=== PATIENT | female | born 1950 | race Caucasian/White ===

== ENCOUNTER 2021-01-24 15:32 | Inpatient (IN) | payer MEDICARE ==
[~2021-01-24] VITALS: Ht 160 cm; Wt 86.2 kg
[~2021-01-24 15:32] MED LIST: COZAAR100 MG PO; ELIQUIS 5 MG TAB5 MG PO; ELIQUIS2.5 MG PO; HYDROCHLOROTHIA25 MG PO; LASIX40 MG PO; LOPRESSOR 25 MG25 MG PO; LOPRESSOR50 MG PO; LOSARTAN-HCTZ1 EAC1 PO; OMEPRAZOLE20 MG PO; SYNTHROID150 MCG PO
[2021-01-25 07:18] LABS: HEMOGLOBIN 11.7 gm/dl (12.3-15.3); RED BLOOD COUNT 3.63 M/UL (4.00-5.10); WHITE BLOOD COUNT 5.8 K/UL (4.5-11.0)
[2021-01-27 11:38] LABS: BUN/CREATININE RATIO 30 (0-10)
[2021-01-29] MEDS ORDERED: SYNTHROID150 MCG PO (09:44)
[2021-01-29] MEDS ORDERED: FLU VACCINE IM (09:44)
[2021-01-29] MEDS ORDERED: ACETAMINOPHEN325 MG PO (09:44)
--- NOTE | 2021-01-29 12:10 | NUR ---
awaiting for admitting nurse at [facility] to call back for report. nurse on lunch.
== END 2021-01-29 13:00 | DRG 563 ==
LOC: ER1 15:32 → M/S 19:06 → CDU 19:06 → M/S 21:01
PROVIDERS: Internal Medicine Infectious Disease; ADMIT Family Medicine
PROC: 0RSJXZZ Reposition Right Shoulder Joint, External Approach (ICD-10-PCS; principal; 2021-01-25)
DX: S43.005A Unspecified dislocation of left shoulder joint, initial encounter (principal); S02.40DA Maxillary fracture, left side, initial encounter for closed fracture; I48.21 Permanent atrial fibrillation; I50.32 Chronic diastolic (congestive) heart failure; Z20.822 Contact with and (suspected) exposure to COVID-19; S43.004A Unspecified dislocation of right shoulder joint, initial encounter; W01.0XXA Fall on same level from slipping, tripping and stumbling without subsequent striking against object, initial encounter; S05.11XA Contusion of eyeball and orbital tissues, right eye, initial encounter; I34.1 Nonrheumatic mitral (valve) prolapse; M06.9 Rheumatoid arthritis, unspecified; E03.9 Hypothyroidism, unspecified; I11.0 Hypertensive heart disease with heart failure; R58 Hemorrhage, not elsewhere classified; Z96.653 Presence of artificial knee joint, bilateral; K21.9 Gastro-esophageal reflux disease without esophagitis; Z86.73 Personal history of transient ischemic attack (TIA), and cerebral infarction without residual deficits; Z90.89 Acquired absence of other organs; Z88.0 Allergy status to penicillin; Z88.2 Allergy status to sulfonamides; Z88.8 Allergy status to other drugs, medicaments and biological substances; Z79.899 Other long term (current) drug therapy
CPT/HCPCS: 23650; 36415; 70450; 70486; 71045; 72125; 73020; 73030; 80048; 80053; 83735; 85025; 93005; 94760; 97116-GP-CQ; 97162; 97166; 97530-GP-CQ; 97535; 99285; G0378; J2704; J7030; U0002